=== PATIENT | female | born 1970 | race Caucasian/White ===

== ENCOUNTER 2021-03-16 14:19 | Outpatient (CLI) | payer BC, SELFPAY ==
--- NOTE | ~2021-03-16 | CT_ITS ---
EXAMINATION: CT lung screening DATE: 03/16/2021 14:38 INDICATION: Personal history of tobacco dependence, current smoker with 35 pack year history TECHNIQUE: Computed tomography (CT) of the chest was performed without intravenous contrast. The dose -length product (DLP) was 99.16 mGy-cm. Automated exposure control and iterative reconstruction techn [employer] were employed. COMPARISON: None FINDINGS: There is a 6 mm nodule of the right lower lobe on image 46. There is a 4 mm nodule left low er lobe on image 64. There is mild emphysema. No pleural effusion or pneumothorax is identified. The lungs are free of acute opacities. No pathologically enlarged thoracic lymph nodes are identified. Th e heart size is normal. There is mild thoracic spondylosis. IMPRESSION: 1. Lung-RADS category 3: Probably benign. Followup with noncontrast low-dose chest CT in 6 months is recommended. Reviewed, dictated and finalized at location A. IMPRESSION: 1. Lung-RADS category 3: Probably benign. Followup with noncontrast low-dose ch est CT in 6 months is recommended.
== END 2021-03-16 14:20 | disposition home or self-care (01) ==
LOC: ANHIMG 14:23
PROVIDERS: PCP Internal Medicine; Visit Provider Internal Medicine
DX: Z12.2 Encounter for screening for malignant neoplasm of respiratory organs (principal); Z87.891 Personal history of nicotine dependence
CPT/HCPCS: 71271

== ENCOUNTER 2022-02-22 09:00 | Outpatient (CLI) | payer BC, SELFPAY ==
--- NOTE | ~2022-02-22 | XR_ITS ---
EXAMINATION: XR chest 2V DATE: 02/22/2022 09:16 INDICATION: Cough. TECHNIQUE: Frontal and lateral views of the chest were obtained. COMPARISON: Chest CT 03/16/2021 FINDINGS: The chest demonstrates clear lungs without pneumonia, pleural effusion, or pneumothorax. Th e heart size is normal. IMPRESSION: 1. No acute cardiopulmonary disease. Reviewed, dictated and finalized at location A.
== END 2022-02-22 09:01 ==
PROVIDERS: PCP Internal Medicine; Visit Provider Internal Medicine
DX: R05.9 Cough, unspecified (principal)
CPT/HCPCS: 71046

== ENCOUNTER 2022-07-06 21:21 | Inpatient (IN) | payer BC, SELFPAY ==
[2022-07-06] VITALS (23 sets, daily range): BP systolic 134–184; BP diastolic 77–107; PULSE 99–118; RESP 17–43; O2SAT 71–99
--- NOTE | ~2022-07-06 | XR_ITS ---
XR chest 1V portable 07/06/2022 21:46 Indication: Dyspnea Procedure: AP portable chest Comparison: 02/22/2022 Findings: There is bilateral airspace disease with peribronchial thickening. No pleural effusion. Hea rt size normal. No pneumothorax. Impression: 1: Diffuse bilateral airspace disease with peribronchial thickening which may represent interstitial edema or pneumonia. Reviewed, dictated and finalized at location A. Impression: 1: Diffuse bilateral airspace disease with peribronchial thickening which may r epresent interstitial edema or pneumonia.
--- NOTE | 2022-07-06 21:26 | ECG_ITS ---
Measurements Intervals [place] Rate: 118 P: 76 AL: 156 QRS: 59 QRSD: 84 T: 53 QT: 303 QTc: 425 Interpretive Statements SINUS TACHYCARDIA POSSIBLE RIGHT ATRIAL ENLARGEMENT [0.25mV P WAVE] POSSIBLE RIGHT VENTRICULAR CONDUCTION DELAY [RSR (QR) IN V1/V2] NO PREVIOUS ECG AVAILABLE FOR COMPARISON Electronically Signed On 07-07-2022 10:17:34 CDT by Brian James M.D.
--- NOTE | 2022-07-06 21:38 | ED.SOB ---
HPI - SOB/Dyspnea General Chief Complaint: Shortness of Breath/Dyspnea Stated Complaint: shortness of breath and pain in arm, chest tightne Time Seen by Provider: 07/06/22 21:27 History of Present Illness HPI Narrative: This is a 52-year-old female with past medical history of COPD who presents to the emergency department complaining of shortness of breath. She states she has had cough with mild shortness of breath for the past several days, worsening today. She associated chest tightness with production of nonbloody mucus. She denies any known sick contacts, loss of consciousness, leg swelling, or other chest pain. Related Data Home Medications Medication Instructions Recorded Confirmed Adults Multivitamin 1 tablet PO DAILY 07/07/22 07/07/22 cetirizine 10 mg tablet (Zyrtec) 10 mg PO DAILY 07/07/22 07/07/22 cholecalciferol (vitamin D3) 125 5,000 unit PO DAILY 07/07/22 07/07/22 mcg (5,000 unit) tablet (Vitamin D3) nicotine 21 mg/24 hr daily 1 patch topical DAILY 07/07/22 07/07/22 transdermal patch rosuvastatin 5 mg tablet 5 mg PO DAILY 07/07/22 07/07/22 Allergies Allergy/AdvReac Type Severity Reaction Status Date / Time bee venom protein (honey bee) Allergy Severe Anaphylaxis Verified 07/07/22 03:09 morphine Allergy Unknown rash Verified 07/06/22 21:45 Review of Systems Review of Systems: CONSTITUTIONAL: Denies fever, chills, or sweats. ENT: Denies rhinorrhea, congestion, sore throat, or otalgia. CARDIOVASCULAR: Denies chest pain, palpitations, or edema. RESPIRATORY: Cough, dyspnea GASTROINTESTINAL: Denies abdominal pain, nausea, vomiting, or diarrhea. GENITOURINARY: Denies dysuria or hematuria. SKIN: Denies rash or itching. MUSCULOSKELETAL: Denies back pain, joint pain, or myalgia. NEUROLOGIC: Denies headache, numbness, dizziness, or weakness. PSYCHIATRIC: Denies anxiety or depression. [facility] Past Medical History Medical History (Updated 07/07/22 @ 03:22 by Osman Goodson MD) COPD (chronic obstructive pulmonary disease) Family History Family History (Updated 07/07/22 @ 03:05 by Deyanira M. Crockarell, RN) Mother Diabetes mellitus Acute myocardial infarction Passed in 2019 Cerebrovascular accident Heart disease Grandparent Colon cancer maternal Social History Social History (Updated 07/06/22 @ 21:41 by Osman Goodson MD) Smoking status: Former smoker Alcohol intake: current Substance use: never Exam Narrative: GENERAL: Well-developed, well-nourished, in moderate distress due to dyspnea HEAD: Normocephalic, atraumatic. EYES: PERRLA and EOMI. ENT: Nares clear, no rhinorrhea or epistaxis. Mucous membranes moist. Oropharynx without tonsillar hypertrophy exudate or other lesions. NECK: Supple. No adenopathy or masses. No carotid bruits or JVD CHEST: Tachypneic, poor aeration, full cycle wheeze noted, no rales or rhonchi HEART: Tachycardic with regular rhythm. No murmur heard. Normal peripheral pulses. ABDOMEN: Soft, nontender, nondistended, normal active bowel sounds. EXTREMITIES: Normal range of motion. No edema. SKIN: Warm, dry, no rash. NEURO: No focal deficits. Alert and oriented x3. PSYCH: Normal mood and affect. Course Course Emergency Course: 00:12 - CBC shows white blood cell count of 16, hemoglobin of 16 and platelets of 360. Chemistry is unremarkable. ABG shows respiratory acidosis with a pH of 7.26 and PCO2 of 60. Chest x-ray on my review appears to show diffuse hazy infiltrate somewhat concerning for COVID, however flu and COVID swabs are negative. Reassessed patient she states she feels much better though still is short of breath. Discussed recommendations for BiPAP and admission. The patient voiced concerns for prolonged admission but is agreeable. Discussed patient with hospitalist, Dr. Pisano who accepts admission. Vital Signs Vital signs: Vital Signs Pulse Rate 118 H 07/06/22 21:35 Pulse Oximetry 92 07/06/22 21:35 Oxygen
[2022-07-06 21:46] LABS: Basophils Absolute Auto 0.1 K/mm3 (0.0-0.1); Basophils Percent Auto 0.5 % (0.2-1.2); Eosinophils Absolute Auto 0.6 K/mm3 (0-0.3); Eosinophils Percent Auto 3.4 % (0-4.4); Hematocrit 48.5 % (37.0-47.0); Immature Granulocyte Absolute 0.08 K/mm3 (0.00-0.031); Immature Granulocyte Percent A 0.5 % (0-0.5); Lymphocytes Absolute Auto 3.76 K/mm3 (0.9-3.2); Lymphocytes Percent Auto 22.7 % (18.3-44.2); Mean Corpuscular Hemoglobin 31.8 pg (26-34); Mean Corpuscular Volume 96.4 fl (80-100); Mean Platelet Volume 9.2 fl (7.4-10.4); Monocytes Absolute Auto 1.1 K/mm3 (0.1-0.6); Monocytes Percent Auto 6.3 % (2.6-8.5); Neutrophils Percent Auto 66.6 % (45.5-73.1); Platelet Count Result 360 k/mm3 (150-375); Red Blood Count 5.03 M/mm3 (4.2-5.4); Red Cell Distribution Width 14.1 % (11.5-14.5); White Blood Count 16.6 K/mm3 (4.5-10.0)
[2022-07-06 21:57] LABS: Alanine Aminotransferase 24 U/L (6-35); Albumin Level 4.9 g/dL (3.5-5.1); Alkaline Phosphatase 143 U/L (38-126); Anion Gap 15 mmol/L (8-16); Aspartate Amino Transferase 26 U/L (14-36); Bilirubin,Total 0.4 mg/dL (0.2-1.3); Blood Urea Nitrogen 3 mg/dL (7-17); Calcium 9.4 mg/dL (8.4-10.2); Carbon Dioxide 27 mmol/L (22-30); Chloride 101 mmol/L (98-107); Estimated CRCL calculation 102 ml/min; Estimated Glomerular Filt Rate > 60; Glucose 140 mg/dL (65-110); Potassium 3.8 mmol/L (3.4-5.0); Sodium 143 mmol/L (137-145)
[2022-07-06] MEDS: ALBUTEROL SULFATE NEB 2.5 MG/3 ML INH 5 MG INHALATION (21:58)
[2022-07-06] MEDS: IPRATROPIUM BR 0.02% INH SOLN 0.5 MG/2.5 ML VIAL INHALATION (21:59)
[2022-07-06] MEDS: MAGNESIUM SULF 2 GM/WATER 50ML 2 GM/50 ML BAG IVPB (22:04)
[2022-07-06] MEDS: methylPREDNISolone SOD SUCC 125 MG VIAL IV PUSH (22:04)
[2022-07-06 22:09] LABS: Troponin I < 0.012 ng/mL (0.000-0.034)
[2022-07-06 22:09] LABS: Base Excess ABG -1.9 mEq/l (+/-2.0); Fractional Inspired Oxygen 90 %; HCO3 ABG 26.7 mEq/l (22.0-26.0); Oxyhemoglobin 94.9 % THb (90.0-100.0); PO2 FiO2 Ratio Arterial Blood 1.17 %; Total Hemoglobin 16.6 g/dL (12.0-18.0)
[2022-07-06 22:16] LABS: PCO2 ABG 60.2 mmHg (35.0-45.0); pH ABG 7.264 (7.350-7.450)
[2022-07-06 22:17] LABS: Device NASAL CANNULA; Modified Allen's Test Unable to perform; Site Drawn RIGHT RADIAL
[2022-07-07] VITALS (32 sets, daily range): BP systolic 128–161; BP diastolic 68–91; PULSE 81–110; RESP 12–30; TEMP 36–36.8; O2SAT 89–98; BMI 29.5
[2022-07-07] MEDS: AZITHROMYCIN 250 MG TABLET 500 MG PO (00:02)
[2022-07-07 00:08] LABS: Influenza A QL RT-PCR Negative (Negative); Influenza B QL RT-PCR Negative (Negative); SARS-CoV-2 RNA PCR Negative
--- NOTE | 2022-07-07 02:51 | PC.NURSE ---
Pt arrived to imu at 0239 on bipap. Pt stated a need to void but refused a bedside commode and insisted on walking to BR despite RT and this RN's advice to remain in bed or at bedside. RT placed pt on 6L NC and pt dropped to 92% during bathroom use and then 88% quickly when she briefly removed it. Placed back on bipap.
[2022-07-07] MEDS: ALBUTEROL SULFATE NEB 2.5 MG/3 ML INH 5 MG INHALATION ×4 (02:57→09:11)
--- NOTE | 2022-07-07 08:35 | PM.IMHP ---
H&P: HPI History of Present Illness Date/Time: 07/07/22 08:35 Chief Complaint: Shortness of breath Narrative: This is a 52-year-old female with past medical history of COPD who presents to the emergency department complaining of shortness of breath.? She states she has had cough with mild shortness of breath for the past several days, worsening today.? She associated chest tightness with production of nonbloody mucus.? She denies any known sick contacts, loss of consciousness, leg swelling, or other chest pain. She was noted to have respiratory acidosis and was placed on BiPAP arrival. This morning she had felt better ABG has improved BiPAP removed. Remains on oxygen supplementation. She denies being on oxygen prior to this admission. She has long standing history of smoking 1 pack per day for over 30 yesterday she takes medication for allergy but denies having history of asthma in the past Review of Systems Review of Systems: - CONSTITUTIONAL: Denies weight loss, fever and chills. - HEENT: Denies changes in vision and hearing - RESPIRATORY: Reports SOB and cough. - CV: Denies palpitations and CP. - GI: Denies abdominal pain, nausea, vomiting and diarrhea. - : Denies dysuria and urinary frequency. - MSK: Denies myalgia and joint pain. - SKIN: Denies rash and pruritus. - NEUROLOGICAL: Denies headache and syncope. - PSYCHIATRIC: Denies recent changes in mood. Denies anxiety and depression. [facility] Past Medical History Medical History (Updated 07/07/22 @ 08:49 by Robert King MD) COPD (chronic obstructive pulmonary disease) Family History Family History (Updated 07/07/22 @ 03:05 by Deyanira Russell RN) Mother Diabetes mellitus Acute myocardial infarction Passed in 2019 Cerebrovascular accident Heart disease Grandparent Colon cancer maternal Social History Social History (Updated 07/06/22 @ 21:41 by Osman Goodson MD) Smoking packs per day: 1 Smoking cigarettes per day: 20.0 Years smoked: 30 Smoking pack-years: 30.00 Smoking status: Former smoker Tobacco type: cigarettes Smoking end date: 07/03/22 Alcohol intake: former Substance use: never Spiritual care concerns: No Meds Home Medications and Allergies Home Medications Medication Instructions Recorded Confirmed Type Adults Multivitamin 1 tablet PO DAILY 07/07/22 07/07/22 History cetirizine 10 mg tablet (Zyrtec) 10 mg PO DAILY 07/07/22 07/07/22 History cholecalciferol (vitamin D3) 125 5,000 unit PO DAILY 07/07/22 07/07/22 History mcg (5,000 unit) tablet (Vitamin D3) ipratropium 0.5 mg-albuterol 3 mg 3 ml inhalation Q4-6H PRN 07/07/22 07/07/22 History (2.5 mg base)/3 mL nebulization Shortness Of Breath soln ipratropium 20 mcg-albuterol 100 1 puff inhalation QID PRN 07/07/22 07/07/22 History mcg/actuation mist for inhalation Shortness Of Breath (Combivent Respimat) nicotine 21 mg/24 hr daily 1 patch topical DAILY 07/07/22 07/07/22 History transdermal patch rosuvastatin 5 mg tablet 5 mg PO DAILY 07/07/22 07/07/22 History Allergies Allergy/AdvReac Type Severity Reaction Status Date / Time bee venom protein (honey bee) Allergy Severe Anaphylaxis Verified 07/07/22 03:09 morphine Allergy Unknown rash Verified 07/06/22 21:45 Vital Signs Vital Signs - 24 hr 07/06/22 21:36 07/06/22 21:35 07/06/22 21:35 Temperature Pulse Rate 118 H 118 H Respiratory Rate 42 H Blood Pressure 184/99 H Pulse Oximetry 96 92 Oxygen Delivery Nasal Cannula Nasal Cannula Oxygen Flow Rate 5 2 Fraction of Inspired Oxygen 07/06/22 21:39 07/06/22 22:01 07/06/22 22:02 Temperature Pulse Rate 117 H 118 H 117 H Respiratory Rate 36 H 43 H 28 H Blood Pressure 168/107 H Pulse Oximetry 97 91 Oxygen Delivery Oxygen Flow Rate Fraction of Inspired Oxygen 07/06/22 22:15 07/06/22 22:16 07/06/22 22:45 Temperature Pulse Rate 109 H 110 H R
[2022-07-07 08:52] LABS: Alveolar/Arterial O2 Gradient 96.6 mmHg; Base Excess ABG 1.1 mEq/l (+/-2.0); Carboxyhemoglobin 0.4 % THb (0-2.0); Fractional Inspired Oxygen 30 %; HCO3 ABG 25.8 mEq/l (22.0-26.0); Methemoglobin ABG 0.3 %THb (0-1.5); Oxygen Content ABG 19.8 %vol (16.0-22.0); Oxyhemoglobin 92.7 % THb (90.0-100.0); PCO2 ABG 41.3 mmHg (35.0-45.0); PO2 ABG 68.8 mmHg (80.0-100.0); PO2 FiO2 Ratio Arterial Blood 2.29 %; Reduced Hemoglobin 6.6 %THb (0-5.0); Total Hemoglobin 15.2 g/dL (12.0-18.0); pH ABG 7.413 (7.350-7.450)
[2022-07-07 08:53] LABS: Device BIPAP; Modified Allen's Test Pass; Site Drawn RIGHT RADIAL
[2022-07-07 08:56] LABS: Expiratory Pressure 6 cmH2O; Inspiratory Pressure 12 cmH2O
[2022-07-07 10:08] LABS: NT Pro B Type Natriuretic Pept 203 pg/mL (5-100)
[2022-07-07] MEDS: NICOTINE (*PBKC) 21 MG PATCH 1 PATCH TOPICAL (10:23)
[2022-07-07] MEDS: ROSUVASTATIN 5 MG TABLET PO (10:23)
[2022-07-07] MEDS: MULTIVITAMINS THERAPEUTIC TAB (*BKC) 1 TABLET PO (10:23)
[2022-07-07] MEDS: methylPREDNISolone SOD SUCC 125 MG VIAL 60 MG IV PUSH ×3 (10:23→18:10)
[2022-07-07] MEDS: LORATADINE 10 MG TABLET PO (10:24)
[2022-07-07] MEDS: ACETAMINOPHEN 325 MG TABLET 650 MG PO (10:24)
[2022-07-07] MEDS: CHOLECALCIFEROL 1,000 UNITS TABLET 5000 UNITS PO (10:24)
[2022-07-07] MEDS: ALBUTEROL SULFATE NEB 2.5 MG/3 ML INH INHALATION ×2 (14:00→20:39)
[2022-07-07] MEDS: IPRATROPIUM BR 0.02% INH SOLN 0.5 MG/2.5 ML VIAL INHALATION ×2 (14:00→20:39)
--- NOTE | 2022-07-07 21:55 | PC.NURSE ---
Patient c/o itching at IV site while receiving Azithromycin IV dose. No SOB, no redness or hives noted. Infusion stopped, KELLY Catherine notified.
[2022-07-08] VITALS (16 sets, daily range): BP systolic 130–145; BP diastolic 68–75; PULSE 72–101; RESP 16–22; TEMP 35.6–36.3; O2SAT 89–95
[2022-07-08] MEDS: methylPREDNISolone SOD SUCC 125 MG VIAL 60 MG IV PUSH ×3 (00:08→12:28)
--- NOTE | 2022-07-08 04:02 | PC.NURSE ---
Went into patient room because O2 sat was dropping to 85%. Found patient on room air where as she was previously on 3L of O2. The patient stated to me that she is refusing to wear the oxygen because she is weening herself off so she can go home. I encouraged her to wear the oxygen and used to the time to do some teaching about the importance of utilizing the oxygen while she is here. Patient still refused to put on the oxygen. Will continue to monitor.
[2022-07-08 04:36] LABS: Basophils Absolute Auto 0.1 K/mm3 (0.0-0.1); Basophils Percent Auto 0.2 % (0.2-1.2); Hematocrit 40.7 % (37.0-47.0); Hemoglobin 13.7 g/dL (12.0-15.0); Immature Granulocyte Absolute 0.34 K/mm3 (0.00-0.031); Immature Granulocyte Percent A 1.1 % (0-0.5); Lymphocytes Absolute Auto 1.51 K/mm3 (0.9-3.2); Mean Corpuscular HGB Conc 33.7 g/dl (32-36); Mean Corpuscular Hemoglobin 31.1 pg (26-34); Mean Corpuscular Volume 92.3 fl (80-100); Mean Platelet Volume 9.4 fl (7.4-10.4); Monocytes Absolute Auto 0.7 K/mm3 (0.1-0.6); Monocytes Percent Auto 2.4 % (2.6-8.5); Neutrophils Absolute Auto 27.3 K/mm3 (1.3-6.7); Neutrophils Percent Auto 91.3 % (45.5-73.1); Platelet Count Result 363 k/mm3 (150-375); Red Blood Count 4.41 M/mm3 (4.2-5.4); Red Cell Distribution Width 13.7 % (11.5-14.5); White Blood Count 29.9 K/mm3 (4.5-10.0)
[2022-07-08 04:59] LABS: Alanine Aminotransferase 19 U/L (6-35); Albumin Level 4.2 g/dL (3.5-5.1); Alkaline Phosphatase 107 U/L (38-126); Anion Gap 10 mmol/L (8-16); Aspartate Amino Transferase 18 U/L (14-36); Bilirubin,Total 0.2 mg/dL (0.2-1.3); Blood Urea Nitrogen 13 mg/dL (7-17); Carbon Dioxide 26 mmol/L (22-30); Chloride 103 mmol/L (98-107); Estimated CRCL calculation 87 ml/min; Estimated Glomerular Filt Rate > 60; Glucose 144 mg/dL (65-110); Magnesium 2.1 mg/dL (1.6-2.3); Potassium 3.7 mmol/L (3.4-5.0); Sodium 139 mmol/L (137-145)
[2022-07-08] MEDS: ACETAMINOPHEN 325 MG TABLET 650 MG PO (06:21)
[2022-07-08] MEDS: MULTIVITAMINS THERAPEUTIC TAB (*BKC) 1 TABLET PO (08:31)
[2022-07-08] MEDS: NICOTINE (*PBKC) 21 MG PATCH 1 PATCH TOPICAL (08:31)
[2022-07-08] MEDS: CHOLECALCIFEROL 1,000 UNITS TABLET 5000 UNITS PO (08:31)
[2022-07-08] MEDS: ROSUVASTATIN 5 MG TABLET PO (08:31)
[2022-07-08] MEDS: LORATADINE 10 MG TABLET PO (08:31)
[2022-07-08] MEDS: IPRATROPIUM BR 0.02% INH SOLN 0.5 MG/2.5 ML VIAL INHALATION ×3 (09:06→21:50)
[2022-07-08] MEDS: ALBUTEROL SULFATE NEB 2.5 MG/3 ML INH INHALATION ×3 (09:06→21:50)
--- NOTE | 2022-07-08 13:10 | PM.IMPN ---
Progress Note: A&P Assessment and Plan (1) Acute exacerbation of chronic obstructive pulmonary disease: Code(s): J44.1 - Chronic obstructive pulmonary disease with (acute) exacerbation Status: Acute (2) Acute respiratory acidosis: Code(s): J96.02 - Acute respiratory failure with hypercapnia Status: Acute (3) Tachycardia: Code(s): R00.0 - Tachycardia, unspecified Status: Acute (4) COPD (chronic obstructive pulmonary disease): Code(s): J44.9 - Chronic obstructive pulmonary disease, unspecified Status: Acute (5) Acute respiratory failure with hypoxia: Code(s): J96.01 - Acute respiratory failure with hypoxia Status: Acute Plan Shortness of breath Acute hypoxic and hypercapnic respiratory failure needing BiPAP. ABG with respiratory acidosis with 7.26/60/1 02/21. troponin negative COVID influenza swab negative WBC count elevated at 16,000 thousand. Chest x-ray with diffuse bilateral airspace disease with peribronchial thickening which may represent interstitial edema or pneumonia. EKG with tachycardia. Repeat ABG and adjust BiPAP as needed. Most likely pneumonia versus COPD exacerbation. Pancultured. Solu Medrol azithromycin will add ceftriaxone for CAP coverage. BNP mildly elevated. Will change Solu-Medrol to prednisone today. Continue ceftriaxone and azithromycin. Continue to wean oxygen as per protocol Nicotine dependence COPD exacerbation: See above Hyperlipidemia continue rosuvastatin DVT prophylaxis Lovenox Code status full code Subjective Date/time seen: 07/08/22 13:10 Interval history: HPI:This is a 52-year-old female with past medical history of COPD who presents to the emergency department complaining of shortness of breath.? She states she has had cough with mild shortness of breath for the past several days, worsening today.? She associated chest tightness with production of nonbloody mucus.? She denies any known sick contacts, loss of consciousness, leg swelling, or other chest pain.? She was noted to have respiratory acidosis and was placed on BiPAP arrival.? This morning she had felt better ABG has improved BiPAP removed.? Remains on oxygen supplementation.? She denies being on oxygen prior to this admission.? She has long standing history of smoking 1 pack per day for over 30 yesterday she takes medication for allergy but denies having history of asthma in the past 07/08/2022: Feeling better. Still hypoxic on ambulation and needing oxygen supplementation. Wheezing is improved. She did wear BiPAP last night Review of Systems Review of Systems: All systems reviewed & are unremarkable except as noted in HPI and below Exam Narrative: GENERAL: Well-developed, well-nourished, in no acute distress HEAD: Normocephalic, atraumatic. EYES: PERRLA and EOMI. ENT: Nares clear, no rhinorrhea or epistaxis.? NECK: Supple.? No adenopathy or masses.? No carotid bruits or JVD CHEST: coarse breath sounds no wheezes, not in acute respiratory distress HEART: Tachycardic with regular rhythm.? No murmur heard.? Normal peripheral pulses. ABDOMEN: Soft, nontender, nondistended, normal active bowel sounds. EXTREMITIES: Normal range of motion.? No edema. SKIN: Warm, dry, no rash. NEURO: No focal deficits.? Alert and oriented x3. PSYCH: Normal mood and affect. Objective Data Vital Signs Vital Signs: Vital Signs - 24 hr 07/07/22 13:55 07/07/22 14:03 07/07/22 14:02 Temperature Pulse Rate 92 88 88 Respiratory Rate 20 20 Blood Pressure Pulse Oximetry 92 Oxygen Delivery Oxygen Flow Rate 2 07/07/22 14:00 07/07/22 16:35 07/07/22 16:00 Temperature Pulse Rate 91 89 Respiratory Rate Blood Pressure Pulse Oximetry 90 Oxygen Delivery Nasal Cannula Oxygen Flow Rate 2 07/07/22 16:00 07/07/22 18:22 07/07/22 20:48 Temperature 96.8 F L 97.2 F L Pulse Rate 89 89 89 Respiratory Rate 20 20 Blood Pressure 137/71 147/77 H
[2022-07-08] MEDS: guaiFENesin 12 HR 600 MG TABCR 1200 MG PO ×2 (13:52→20:24)
--- NOTE | 2022-07-08 21:30 | PC.NURSE ---
This patient, Tonja Lopez, was transferred to [[id number] ] on 07/08/22 at 2131. Personal belongings sent with patient. Report given to [3rd senior medical transcriptionist ]. Appropriate documentation sent with patient.
[2022-07-09] VITALS: BP 148/62; PULSE 72; RESP 14; TEMP 36.1; O2SAT 93
[2022-07-09] MEDS: ALBUTEROL SULFATE NEB 2.5 MG/3 ML INH INHALATION ×2 (02:24→07:39)
[2022-07-09 02:25] VITALS: PULSE 71; RESP 16
[2022-07-09] MEDS: IPRATROPIUM BR 0.02% INH SOLN 0.5 MG/2.5 ML VIAL INHALATION ×2 (02:25→07:40)
[2022-07-09 02:35] VITALS: PULSE 75; RESP 16
[2022-07-09 06:37] LABS: Basophils Percent Auto 0.2 % (0.2-1.2); Eosinophils Percent Auto 0.2 % (0-4.4); Hematocrit 38.5 % (37.0-47.0); Hemoglobin 12.7 g/dL (12.0-15.0); Immature Granulocyte Absolute 0.18 K/mm3 (0.00-0.031); Immature Granulocyte Percent A 0.8 % (0-0.5); Lymphocytes Absolute Auto 4.52 K/mm3 (0.9-3.2); Lymphocytes Percent Auto 20.4 % (18.3-44.2); Mean Corpuscular Hemoglobin 30.8 pg (26-34); Mean Corpuscular Volume 93.2 fl (80-100); Mean Platelet Volume 9.3 fl (7.4-10.4); Monocytes Absolute Auto 0.9 K/mm3 (0.1-0.6); Neutrophils Absolute Auto 16.5 K/mm3 (1.3-6.7); Neutrophils Percent Auto 74.4 % (45.5-73.1); Platelet Count Result 317 k/mm3 (150-375); Red Blood Count 4.13 M/mm3 (4.2-5.4); Red Cell Distribution Width 13.9 % (11.5-14.5); White Blood Count 22.1 K/mm3 (4.5-10.0)
[2022-07-09 06:57] LABS: Alanine Aminotransferase 17 U/L (6-35); Albumin Level 3.6 g/dL (3.5-5.1); Alkaline Phosphatase 85 U/L (38-126); Anion Gap 10 mmol/L (8-16); Aspartate Amino Transferase 17 U/L (14-36); Bilirubin,Total 0.1 mg/dL (0.2-1.3); Blood Urea Nitrogen 15 mg/dL (7-17); Calcium 8.5 mg/dL (8.4-10.2); Carbon Dioxide 28 mmol/L (22-30); Chloride 102 mmol/L (98-107); Estimated CRCL calculation 87 ml/min; Estimated Glomerular Filt Rate > 60; Glucose 112 mg/dL (65-110); Magnesium 2.1 mg/dL (1.6-2.3); Potassium 3.5 mmol/L (3.4-5.0); Sodium 140 mmol/L (137-145)
[2022-07-09 07:40] VITALS: PULSE 80; RESP 16; O2SAT 94
[2022-07-09 07:52] VITALS: PULSE 82; RESP 16
[2022-07-09 08:00] VITALS: BP 127/72; PULSE 83; RESP 20; TEMP 36.1; O2SAT 100
[2022-07-09] MEDS: MULTIVITAMINS THERAPEUTIC TAB (*BKC) 1 TABLET PO (08:28)
[2022-07-09] MEDS: guaiFENesin 12 HR 600 MG TABCR 1200 MG PO (08:28)
[2022-07-09] MEDS: ROSUVASTATIN 5 MG TABLET PO (08:28)
[2022-07-09] MEDS: CHOLECALCIFEROL 1,000 UNITS TABLET 5000 UNITS PO (08:28)
[2022-07-09] MEDS: predniSONE 20 MG TABLET 40 MG PO (08:28)
[2022-07-09] MEDS: LORATADINE 10 MG TABLET PO (08:29)
[2022-07-09] MEDS: NICOTINE (*PBKC) 21 MG PATCH 1 PATCH TOPICAL (08:30)
--- NOTE | 2022-07-09 12:16 | PM.DS ---
DS: Admitting Diagnosis Discharge Date 08/20 Admitting Diagnosis shortness of breath DS: Discharge Diagnosis Discharge Diagnosis (1) Acute exacerbation of chronic obstructive pulmonary disease: Code(s): J44.1 - Chronic obstructive pulmonary disease with (acute) exacerbation Status: Acute (2) Acute respiratory acidosis: Code(s): J96.02 - Acute respiratory failure with hypercapnia Status: Acute (3) Tachycardia: Code(s): R00.0 - Tachycardia, unspecified Status: Acute (4) COPD (chronic obstructive pulmonary disease): Code(s): J44.9 - Chronic obstructive pulmonary disease, unspecified Status: Acute (5) Acute respiratory failure with hypoxia: Code(s): J96.01 - Acute respiratory failure with hypoxia Status: Acute DS: Summary Hospital Course Hospital Course: #Shortness of breath #Acute hypoxic and hypercapnic respiratory failure needing BiPAP.? ABG with respiratory acidosis with 7.26/60/1 02/21. ? troponin negative, COVID influenza swab negative ,WBC count elevated at 16,000 thousand.? Chest x-ray with diffuse bilateral airspace disease with peribronchial thickening which may represent interstitial edema or pneumonia.? EKG with sinus tachycardia.? Repeat ABG after BiPAP treatment normalized. She was tapered off of the BiPAP. Her respiratory failure likely related to pneumonia versus COPD exacerbation.? she was Pancultured. blood cultures remains negative to date. She was started on Solu Medrol azithromycin and ceftriaxone. She had some itching related azithromycin infusion was stopped. Her ceftriaxone was continued and will be switched to Omnicef at discharge. Solu Medrol was also tapered down to prednisone and will do short taper at the time of discharge. She is advised to follow up with Pulmonary as outpatient basis. She has underlying COPD due to long-term smoking. She is advised to quit smoking as well during the hospital stay. Her BNP was only mildly elevated. She was weaned off of oxygen per protocol and remained at room air at the time of discharge. She is also added on Spiriva for her underlying COPD. Further maintenance inhaler will need to be adjusted as an outpatient basis.? #Nicotine dependence #COPD exacerbation: See above #Hyperlipidemia continue rosuvastatin #DVT prophylaxis Lovenox #Code status full code Time Spent with Patient Time attestation: Total time spent providing and/or coordinating discharge services: 45 minutes Exam Narrative: GENERAL: Well-developed, well-nourished, in no acute distress HEAD: Normocephalic, atraumatic. EYES: PERRLA and EOMI. ENT: Nares clear, no rhinorrhea or epistaxis.? NECK: Supple.? No adenopathy or masses.? No carotid bruits or JVD CHEST: coarse breath sounds no wheezes, not in acute respiratory distress HEART: Tachycardic with regular rhythm.? No murmur heard.? Normal peripheral pulses. ABDOMEN: Soft, nontender, nondistended, normal active bowel sounds. EXTREMITIES: Normal range of motion.? No edema. SKIN: Warm, dry, no rash. NEURO: No focal deficits.? Alert and oriented x3. PSYCH: Normal mood and affect. DS: Data Data Completed and Pending Labs on day of discharge: Labs from last 24 hours 07/09/22 07/09/22 06:12 06:12 WBC 22.1 H RBC 4.13 L Hgb 12.7 Hct 38.5 MCV 93.2 MCH 30.8 MCHC 33.0 RDW 13.9 Plt Count 317 MPV 9.3 Immature Gran % (Auto) 0.8 H Neut % (Auto) 74.4 H Lymph % (Auto) 20.4 [place] % (Auto) 4.0 Eos % (Auto) 0.2 Baso % (Auto) 0.2 Lymph # (Auto) 4.52 H [place] # (Auto) 0.9 H Eos # (Auto) 0.0 Baso # (Auto) 0.0 Abs Immat Gran (auto) 0.18 H Absolute Neuts (auto) 16.5 H Absolute Nucleated RBC 0.0 Nucleated RBC % 0.0 Sodium 140 Potassium 3.5 Chloride 102 Carbon Dioxide 28 Anion Gap 10 BUN 15 Creatinine 0.60 L Estim Creat Clear Calc 87 Estimated GFR > 60 Glucose 112 H Calcium 8.5 Magnesium 2.1 T
== END 2022-07-09 13:20 | disposition home or self-care (01) | DRG 193 ==
LOC: ANHED 07-07 01:50 → ANHIMU 07-07 01:53 → ANH3MEDSUR 07-08 20:38
PROVIDERS: Admitting Provider Internal Medicine; Emergency Provider Preventive Medicine Aerospace Medicine; PCP Internal Medicine; Visit Provider Internal Medicine
DX: J18.9 Pneumonia, unspecified organism (principal); J96.01 Acute respiratory failure with hypoxia; J96.02 Acute respiratory failure with hypercapnia; J44.0 Chronic obstructive pulmonary disease with (acute) lower respiratory infection; J44.1 Chronic obstructive pulmonary disease with (acute) exacerbation; R00.0 Tachycardia, unspecified; E78.5 Hyperlipidemia, unspecified; L29.9 Pruritus, unspecified; T36.3X5A Adverse effect of macrolides, initial encounter; Z20.822 Contact with and (suspected) exposure to COVID-19; Z79.899 Other long term (current) drug therapy; Z87.891 Personal history of nicotine dependence
CPT/HCPCS: 36415; 36600; 71045; 80053; 82375; 82805; 83050; 83735; 83880; 84484; 85025; 87040; 87502; 93005; 94002; 94003; 94640; 94660; 96365; 96375; 99285; A9270; C9803; G0378; J0456; J0696; J2930; J3475; J7512; U0003; U0005

== ENCOUNTER 2022-08-26 11:22 | Outpatient (CLI) | payer BC, SELFPAY ==
--- NOTE | ~2022-08-26 | XR_ITS ---
XR chest 2V DATE: 08/26/2022 11:49 INDICATION: Pneumonia, worsening symptoms. TECHNIQUE: PA and lateral views COMPARISON: 07/06/2022 portable AP chest FINDINGS: Normal heart size. No hilar or mediastinal enlargement. Moderate bilateral hyperinflation. No pulmonary infiltrate or consolidation, pleural effusion or pulm onary vascular congestion or pneumothorax is detected. Mild degenerative spurring of the thoracic spine. IMPRESSION: Moderate hyperinflation; no active cardiopulmonary disease Reviewed, dictated and finalized at location B. [employer]
== END 2022-08-26 11:23 | disposition home or self-care (01) ==
LOC: ANHIMG 11:24
PROVIDERS: PCP Internal Medicine; Visit Provider Internal Medicine
DX: J18.9 Pneumonia, unspecified organism (principal); R91.8 Other nonspecific abnormal finding of lung field
CPT/HCPCS: 71046

== ENCOUNTER 2024-08-09 13:54 | Outpatient (CLI) | payer BC, SELFPAY ==
--- NOTE | ~2024-08-09 | MM_ITS ---
EXAMINATION: MM screening jean carlos BI w leif HISTORY: Screening mammogram TECHNIQUE: Craniocaudal and mediolateral oblique 3-D tomosynthesis images were obtained and synthetic 2-D images were generated. CAD analysis was submitted and interpreted. COMPARISON: 06/29/2009 BREAST PARENCHYMAL COMPOSITION:Dense: The breasts are heterogeneously dense, which may obscure small masses. FINDINGS: No suspicious mass, calcification, or architectural distortion are identified in either rey ast to suggest malignancy. There has been no suspicious interval change. IMPRESSION: No mammographic evidence of malignancy. Recommend routine screening mammography in one year. BI-RADS Category 1: Negative Reviewed, dictated and finalized at location . MCORN THRESHER
== END 2024-08-09 13:55 | disposition home or self-care (01) ==
PROVIDERS: PCP Internal Medicine; Visit Provider Obstetrics & Gynecology
DX: Z12.31 Encounter for screening mammogram for malignant neoplasm of breast (principal)
CPT/HCPCS: 77063; 77067